=== PATIENT | male | born 1975 | race Hispanic/Latino ===

== ENCOUNTER 2018-06-14 21:11 | Inpatient (IN) | payer OTHER ==
[~2018-06-14 21:11] MED LIST: ISOVUE-370 76%-LOCM 1 ML ONE
[2018-06-14] MEDS ORDERED: Fentanyl 100 MCG/2 ML VIAL ONE (21:33)
--- NOTE | 2018-06-14 21:46 | RAD ---
FRONTAL RADIOGRAPH CHEST PORTABLE UPRIGHT: 06/14/2018 HISTORY: Shortness of breath. Trauma. COMPARISON: None. FINDINGS: On the right, there is a lack of lung markings above the clavicle. While no discrete pleural edge is noted, a small right apical pneumothorax cannot be fully excluded. Heart and mediastinal contours a ppear grossly unremarkable. No lobar consolidation. IMPRESSION: Probable small pneumothorax in the right lung apex, given lack of lung markings above the level of th e clavicle. POS: [facility]
--- NOTE | 2018-06-14 22:23 | CT ---
CT CHEST AND ABDOMEN AND PELVIS AND THORACIC SPINE AND LUMBAR SPINE: 06/14/2018 HISTORY: Hit in the chest with a metal pipe. Trauma. Pain. COMPARISON: None. TECHNIQUE: Axial CT imaging at 5 mm intervals from the thoracic inlet through the pubic symphysis with IV contra st. Coronal and sagittal reformatted imaging obtained. FINDINGS: CHEST: Mild subcutaneous gas is noted posterior to the pectoralis musculature on the right, extendin g into the right axillary region. No axillary, hilar, or mediastinal lymphadenopathy is noted. The vascular structures of the chest appear unremarkable. There is a small/moderate pneumothorax on the right, with an apical component, which measures up to 1 .1 cm in AP dimension, and a basilar component, which measures up to 1.8 cm in AP dimension. No pneu mothorax is appreciated on the left. There is a mildly displaced, obliquely oriented, anterior, right 4th rib fracture. No evidence for a left-sided rib fracture is seen. The lung parenchyma demonstrates no focal abnormality. ABDOMEN AND PELVIS: There is no free intraperitoneal air or fluid noted. The liver, spleen, pancreas, adrenal glands, and kidneys appear grossly unremarkable, aside from mult iple punctate, nonobstructing stones within both kidneys, right more numerous than left. There is fluid within a moderately distended stomach. There is a small fat-containing inguinal herni a on the left. Limited assessment of the bowel without contrast media demonstrates no evidence for i nflammatory change or obstruction. The vascular structures of the abdomen/pelvis demonstrate patency , and there is no lymphadenopathy in the abdomen or pelvis. Extraspinal osseous structures of the abdomen/pelvis demonstrate no acute fracture. THORACIC SPINE: Thoracic vertebral body height and alignment appear normal. No anterolisthesis or r etrolisthesis. No thoracic spine fracture or dislocation. LUMBAR SPINE: Lumbar vertebral body height and alignment appear within normal limits with no acute l umbar spine fracture or dislocation. IMPRESSION: Small-moderate pneumothorax on the right with an apical and a basilar component. There is small volu me associated subcutaneous emphysema within the right chest wall/right axillary region, and there is a mildly displaced, obliquely oriented, anterolateral, right-sided 4th rib fracture. Results called to Dr. Sandoval at 9:55 p.m. on 06/14/2018. CODE CR POS: [facility]
[2018-06-14] MEDS ORDERED: Lidocaine 1% (PF) 30 ML VIAL ONE (22:34)
[2018-06-14 23:03] LABS: #Basophils 0.1 thou/uL (0.0-0.2); #Eosinphils 0.1 thou/uL (0.0-0.7); #Lymphocytes 1.2 thou/uL (1.20-3.40); #Monocytes 0.7 thou/uL (0.11-0.59); #Neutrophils 11.4 thou/uL (1.40-6.50); %Basophils 0.5 % (0.0-1.0); %Eosinophils 0.4 % (0.0-10.0); %Lymphocytes 8.7 % (21.0-51.0); %Monocytes 5.4 % (0.0-10.0); %Neutrophils 85.1 % (42.0-75.0); Hemoglobin 15.9 g/dL (14.0-18.0); Mean Corpuscular HGB CONC 33.1 g/dL (32.0-36.0); Mean Corpuscular Hemoglobin 31.2 pg (27.0-31.0); Mean Platelet Volume 7.2 fL (7.4-10.4); Platelet Count 307 thou/uL (130-400); RBC Distribution Width 11.6 % (11.5-14.5); White Blood Cell (WBC) Count 13.4 thou/uL (4.8-10.8)
[2018-06-14 23:25] LABS: ALT (SGPT) 19 U/L (8-55); AST (SGOT) 20 U/L (5-34); Albumin 4.5 g/dL (3.5-5.0); Alkaline Phosphatase 73 U/L (40-150); Anion Gap 16 mmol/L (10-20); BUN (Urea Nitrogen) 13 mg/dL (8.9-20.6); Bilirubin, Total 0.5 mg/dL (0.2-1.2); Calc. Creatinine Clearance 0 mL/min (70-130); Calcium 9.6 mg/dL (7.8-10.44); Carbon Dioxide 22 mmol/L (22-29); Chloride 104 mmol/L (98-107); Estimated GFR-MDRD 51; Globulin 2.6 g/dL (2.4-3.5); Glucose 112 mg/dL (70-105); Potassium 3.9 mmol/L (3.5-5.1); Protein, Total 7.1 g/dL (6.0-8.3); Sodium 138 mmol/L (136-145)
[2018-06-14] MEDS ORDERED: Morphine 4 MG/ML VIAL ONE (23:31)
[2018-06-14 23:44] LABS: INR-International Normal Ratio 1.2; Prothrombin Time 14.9 SEC (12.0-14.7)
--- NOTE | 2018-06-15 01:21 | HP ---
TRAUMA SURGEON: Josh Larson MD CONSULTING PHYSICIAN: None. HISTORY OF PRESENT ILLNESS: The patient is a 43-year-old male, who presented to the emergency department via EMS after blunt right-sided chest trauma. 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 He did not fall or lose consciousness, but reported significant right-sided chest pain and lightheadedness afterwards. He arrived via EMS and was saturating 95% on room air. Denies nausea, vomiting, or diarrhea. Denies hemoptysis. REVIEW OF SYSTEMS: All additional review of systems negative except as indicated above. PAST MEDICAL HISTORY: Asthma. PAST SURGICAL HISTORY: None. SOCIAL HISTORY: The patient lives alone. He smokes a half a pack of cigarettes per day and drinks alcohol 3 times per week. Denies drug use. MEDICATIONS: Proventil, but he is not compliant. ALLERGIES: NO KNOWN DRUG ALLERGIES. PHYSICAL EXAMINATION: VITAL SIGNS: Pulse 78, respirations 19, oxygen saturation 98% on 2 L nasal cannula, blood pressure 111/81. PRIMARY SURVEY: Airway intact. Adequate breath sounds bilaterally. 2+ pulses in the bilateral radials, femorals, and DPs. GCS is 15. Gross motor and sensation intact. No lacerations, redness and some very light bruising to the right lateral chest wall. No external bleeding. SECONDARY SURVEY: HEAD: Normocephalic and atraumatic. No gross palpable skull deformities or tenderness. EYES: Pupils 3 to 2, equal, round, reactive to light bilaterally. ENT: No hemotympanum. No epistaxis. No septal hematoma. Midface stable to manipulation. No blood in the oropharynx. Dentition is intact. No anterior neck injury/crepitus/tenderness. C-SPINE: No step-offs or deformities. Nontender. C-collar not in place. CHEST: Right-sided lateral chest wall tenderness with no crepitus. No abrasions noted. Light ecchymosis and redness to the right lateral chest wall. Equal chest movement. ABDOMEN: Soft, nontender, nondistended. PELVIS: Stable to palpation, nontender. No abrasions or ecchymosis noted. RECTAL: Deferred. GENITOURINARY: Deferred. EXTREMITIES: No gross deformities. No abrasions or ecchymosis noted. 2+ pulses in the bilateral radials femorals and DPs. BACK/SPINE: No step-offs or deformities or tenderness to palpation of the thoracic or lumbar spine. No abrasions or ecchymosis noted. NEUROLOGIC: 5/5 strength in the bilateral envelope fold operator, plantar flexion, and dorsiflexion. Gross motor and sensation intact x4 extremities. LABORATORY FINDINGS: White count 13.4, hemoglobin 15.9, hematocrit 40.0, platelets 307. INR 1.2. Sodium 138, potassium 3.9, chloride 104, carbon dioxide 22, BUN 13, creatinine 1.52, glucose 112. DIAGNOSTIC FINDINGS: Chest x-ray demonstrates probable small pneumothorax in the right lung apex given lack of lung markings above the level of the clavicle. CT of the chest, abdomen and pelvis demonstrates small to moderate pneumothorax on the right with apical and basilar components. There is a small volume associated subcutaneous emphysema within the right chest wall/right axillary region and there is mildly displaced obliquely oriented anterolateral right-sided 4th rib fracture. ASSESSMENT: 1. Status post blunt chest trauma. 2. Right small apical and basilar pneumothorax. 3. Right 4th rib fracture. 4. Acute kidney injury. 5. History of asthma. PLAN: The patient will be admitted to the surgical floor with 2 L nasal cannula on at all time regardless of oxygen saturation. He will also receive a chest x- ray in the morning for further evaluation of the pneumothorax. Pain control via Ofirmev, tramadol, gabapentin, and Flexeril. We will hold NSAIDs at this time due to SUNITHA. SUNITHA likely due to dehydration, 500 mL bolus of normal saline was given in the ED and then the patient will be placed on normal saline at 120 an hour. We will also give him a DuoNeb in the emergency department and he will receive scheduled nebs thereafter. He will be on a regular diet. We will hold chemo-DVT prophylaxis at this time. We will repeat laboratory findings in the morning as well. The patient was discussed with Dr. Larson before this dictation. Job ID: [id number] [facility]
[2018-06-15] MEDS ORDERED: traMADol HCl 50 MG TAB PO PRN (01:42)
[2018-06-15] MEDS ORDERED: Ondansetron PF 4 MG/2 ML Vial IVP PRN (01:42)
[2018-06-15] MEDS ORDERED: Morphine 4 MG/ML VIAL SLOW IVP PRN ×2 (01:42→10:57)
[2018-06-15] MEDS ORDERED: Promethazine HCl 25 MG/ML VIAL IM PRN (01:42)
[2018-06-15] MEDS ORDERED: Dextrose 50% Abboject 50 ML SYRINGE SLOW IVP PRN (01:42)
[2018-06-15] MEDS ORDERED: Dextrose 5% in Water 1,000 ML IV PRN (01:42)
[2018-06-15] MEDS ORDERED: hydrALAZINE 20 MG/ML VIAL SLOW IVP PRN (01:42)
[2018-06-15] MEDS: Acetaminophen 1,000 MG in Premix Bag 1 BAG IVPB SCH ×2 (02:09→08:08)
[2018-06-15] MEDS: traMADol HCl 50 MG TAB PO SCH ×4 (02:11→20:14)
[2018-06-15] MEDS: Sodium Chloride 0.9% 1,000 ML IV SCH ×2 (02:12→13:45)
[2018-06-15 02:45] VITALS: BMI 25.7
[2018-06-15 07:03] LABS: #Eosinphils 0.1 thou/uL (0.0-0.7); #Lymphocytes 2.2 thou/uL (1.20-3.40); #Monocytes 0.8 thou/uL (0.11-0.59); #Neutrophils 4.5 thou/uL (1.40-6.50); %Basophils 0.6 % (0.0-1.0); %Eosinophils 1.4 % (0.0-10.0); %Lymphocytes 28.4 % (21.0-51.0); %Monocytes 10.7 % (0.0-10.0); %Neutrophils 58.8 % (42.0-75.0); Mean Corpuscular HGB CONC 33.6 g/dL (32.0-36.0); Mean Corpuscular Hemoglobin 31.9 pg (27.0-31.0); Mean Corpuscular Volume 94.9 fL (78.0-98.0); Mean Platelet Volume 7.7 fL (7.4-10.4); Platelet Count 285 thou/uL (130-400); RBC Distribution Width 11.9 % (11.5-14.5); White Blood Cell (WBC) Count 7.6 thou/uL (4.8-10.8)
[2018-06-15 07:11] LABS: Anion Gap 13 mmol/L (10-20); BUN (Urea Nitrogen) 17 mg/dL (8.9-20.6); Calc. Creatinine Clearance 86 mL/min (70-130); Calcium 9.2 mg/dL (7.8-10.44); Carbon Dioxide 27 mmol/L (22-29); Chloride 105 mmol/L (98-107); Estimated GFR-MDRD 73; Glucose 105 mg/dL (70-105); Magnesium 2.6 mg/dL (1.6-2.6); Potassium 4.2 mmol/L (3.5-5.1); Sodium 141 mmol/L (136-145)
[2018-06-15] MEDS ORDERED: Lidocaine 1% w/Epinephrine 1:100K 20 ML VIAL IJ SCH (08:00)
[2018-06-15] MEDS: Gabapentin 100 MG CAP PO SCH ×3 (08:10→20:13)
[2018-06-15] MEDS: Polyethylene Glycol 3350 17 GM Packet PO SCH (08:10)
[2018-06-15] MEDS: Famotidine 20 MG TAB PO SCH ×2 (08:10→20:13)
[2018-06-15] MEDS: Senokot S 8.6-50 MG TAB PO SCH ×2 (08:10→20:19)
[2018-06-15] MEDS ORDERED: Lidocaine 1% (PF) 30 ML VIAL ONE (08:57)
--- NOTE | 2018-06-15 09:10 | RAD ---
SINGLE VIEW OF THE CHEST: COMPARISON: 06/14/2018. HISTORY: Right pneumothorax. FINDINGS: A single view of the chest shows a normal-sized cardiomediastinal silhouette. There is a small right apical pneumothorax Compared to the prior radiograph, this has increased in size. IMPRESSION: Increasing size of small right pneumothorax. POS: [facility]
[2018-06-15] MEDS ORDERED: Ketorolac Tromethamine 30 MG/ML VIAL IVP SCH (09:15)
--- NOTE | 2018-06-15 11:22 | PRG ---
DATE OF SERVICE: 06/15/2018 SUBJECTIVE: The patient was seen this morning sitting up at the edge of bed. Reported pain to right chest wall, not currently relieved on current pain regimen. Denied shortness of breath, nausea, vomiting, or diarrhea. Chest x-ray this morning demonstrated increasing in size right-sided pneumothorax. The patient did consent to a chest tube placement on that right side and the procedure was completed at bedside this morning by myself and Dr. Li. He tolerated the procedure well and had no complaints afterwards. OBJECTIVE: VITAL SIGNS: Temperature 97.8, pulse 72, respirations 20, oxygen saturation 95% on 2 L nasal cannula, blood pressure 120/74. GENERAL: Well-appearing middle-aged male sitting at edge of bed with minimal signs of distress. PULMONARY: Equal chest rise and fall. Clear breath sounds bilaterally. No signs of acute pulmonary distress. CARDIAC: Regular rate and rhythm. No murmurs, gallops, or rubs. GI: Abdomen is soft, nontender, nondistended. EXTREMITIES: 2+ pulses in all extremities. Gross motor and sensation intact in all extremities. No significant swelling noted. LABORATORY FINDINGS: White count 7.6, hemoglobin 15.0, hematocrit 44.6, platelets 285. Sodium 141, potassium 4.2, chloride 105, carbon dioxide 27, BUN 17, creatinine 1.11, glucose 105, phos 5.0, magnesium 2.6. DIAGNOSTIC FINDINGS: Chest x-ray completed this morning on June 15 demonstrated increased size of small right pneumothorax. ASSESSMENT: 1. Status post blunt chest trauma. 2. Right right-sided pneumothorax, status post chest tube placement. 3. Right 4th rib fracture. 4. Acute kidney injury, resolved. 5. History of asthma. PLAN: The patient received a right-sided chest tube today by Dr. Li and myself which is to suction at this time. He will receive a chest x-ray tomorrow morning. We will also monitor output from the chest tube. We will continue previous pain regimen, but will increase gabapentin. Now that SUNITHA has resolved. We will start Toradol IV 15 mg q.6 hours scheduled x3 days. Discontinue normal saline. The patient can continue a regular diet. Continue scheduled DuoNeb. We will start Lovenox for chemo-DVT prophylaxis this evening. The patient was seen and examined by Dr. Li and myself this morning during rounds. Job ID: [id number]
[2018-06-15 12:41] LABS: Bilirubin Negative (Negative); Blood, Urine Negative (Negative); Clarity CLEAR (Clear); Glucose, Urine (Dipstick) Negative (Negative); Leukocyte Negative (Negative); Nitrite Negative (Negative); Protein, Urine (Dipstick) Negative (Neg-Trace); Urobilinogen 0.2 mg/dL (0.2-1.0)
[2018-06-15 12:43] LABS: Amphetamine Detected (NotDetected); Barbiturates Screen Not Detected (NotDetected); Benzodiazepine Screen Not Detected (NotDetected); Cocaine Metabolite Screen Detected (NotDetected); Medtox Control Line Valid? VALID (VALID); Medtox Reader # READER 4; Methadone Not Detected (NotDetected); Methamphetamine Detected (NotDetected); Opiate Screen Detected (NotDetected); Oxycodone Screen Not Detected (NotDetected); Phencyclidine (PCP) Not Detected (NotDetected); THC/Cannabinoid Screen Not Detected (NotDetected); Tricyclic Screen Not Detected (NotDetected)
[2018-06-15 12:46] LABS: Specific Gravity, Urine Greater than 1.060 (1.002-1.036)
--- NOTE | 2018-06-15 13:37 | OP ---
DATE OF PROCEDURE: 06/15/2018 COMPLICATIONS: None. SPECIMENS: None. DRAINS: Right-sided 24-Kosovan chest tube. AGRICULTURE SCIENCE TEACHER: Jayy Li DO. ANESTHESIA: Local anesthesia, 1% lidocaine without epinephrine. ESTIMATED BLOOD LOSS: Less than 5 mL. PREOPERATIVE DIAGNOSES: Blunt chest trauma, right-sided moderate pneumothorax, and right 4th rib fracture. POSTOPERATIVE DIAGNOSES: Blunt chest trauma, right-sided moderate pneumothorax, and right 4th rib fracture. PROCEDURE PERFORMED: Right-sided thoracostomy tube placement. BRIEF PATIENT HISTORY AND PROCEDURE IN DETAIL: This is a 43-year-old male patient who presented to the ED yesterday initially with a small right-sided apical and basilar pneumothorax. He was maintaining his saturation on room air, and he was admitted to the floor with nasal cannula oxygen and chest x-ray completed this morning. The patient's pneumothorax on the right side had increased in size and now was moderate. He was still maintaining his own airway and oxygen saturation, but it was decided that he needed a right-sided chest tube for evacuation of the pneumothorax. The patient was identified for a right-sided 24-Kosovan chest tube which accessory was reviewed at the patient's bedside and was determined necessary. The patient signed consent after discussing risks and benefits of the procedure. A time-out was called and a right lateral chest wall at the anterior axillary line was marked in the patient, prepped for the procedure. A local block was obtained using 20 mL of lidocaine without epinephrine. Adequate anesthesia was achieved. The patient was then prepped with iodine and drapes in his right arm above his head. The skin incision with a 10 blade and dissected downward to the subcutaneous tissue. Blunt dissection of the tissue using hemostats was achieved. The superior costal margin was identified and after moving up one rib space, the intercostal muscle was bluntly dissected using gentle controlled pressure and gush of air was heard and my finger swept through the pleural space and did not feel any organ structures. The chest tube was placed apically to the 16 cm ed. It was sutured with 0 silk and secured. Gauze was placed around the tube and it was taped in place. Chest tube was connected to a Pleur-Evac canister and connected to continuous suction at -20. The patient's respiration was nonlabored. He was speaking in full sentences without accessory muscle use. He had good pain control. No air leak was identified. There was no output from the chest tube. Tiling was witnessed in the suction chamber. Bleeding was controlled and the patient tolerated the procedure adequately. Dr. Li was at the bedside during the entire procedure and assisted with the local anesthetic administration. Job ID: [id number]
[2018-06-15] MEDS: Ketorolac Tromethamine 30 MG/ML VIAL IVP SCH ×2 (13:43→20:14)
[2018-06-15] MEDS: Acetaminophen 500 MG TAB PO SCH ×2 (13:43→20:13)
[2018-06-15] MEDS: Enoxaparin Sodium 40 MG/0.4 ML SYRINGE SC SCH (20:15)
[2018-06-15] MEDS: Cyclobenzaprine 10 MG TAB PO PRN (22:06)
[2018-06-16] MEDS: Acetaminophen 500 MG TAB PO SCH ×4 (02:10→20:29)
[2018-06-16] MEDS: Ketorolac Tromethamine 30 MG/ML VIAL IVP SCH ×2 (02:10→08:40)
[2018-06-16] MEDS: traMADol HCl 50 MG TAB PO SCH ×4 (02:11→20:30)
[2018-06-16 06:12] LABS: #Basophils 0.1 thou/uL (0.0-0.2); #Eosinphils 0.2 thou/uL (0.0-0.7); #Lymphocytes 2.1 thou/uL (1.20-3.40); #Monocytes 0.4 thou/uL (0.11-0.59); #Neutrophils 1.9 thou/uL (1.40-6.50); %Basophils 1.3 % (0.0-1.0); %Eosinophils 3.8 % (0.0-10.0); %Lymphocytes 45.2 % (21.0-51.0); %Neutrophils 40.8 % (42.0-75.0); Hemoglobin 14.3 g/dL (14.0-18.0); Mean Corpuscular Hemoglobin 31.6 pg (27.0-31.0); Mean Platelet Volume 7.8 fL (7.4-10.4); Platelet Count 218 thou/uL (130-400); RBC Distribution Width 11.9 % (11.5-14.5); Red Blood Cell (RBC) Count 4.53 mill/uL (4.70-6.10); White Blood Cell (WBC) Count 4.6 thou/uL (4.8-10.8)
[2018-06-16 06:37] LABS: Anion Gap 7 mmol/L (10-20); BUN (Urea Nitrogen) 15 mg/dL (8.9-20.6); Calc. Creatinine Clearance 106 mL/min (70-130); Calcium 8.5 mg/dL (7.8-10.44); Carbon Dioxide 29 mmol/L (22-29); Chloride 107 mmol/L (98-107); Estimated GFR-MDRD Greater than 90; Glucose 101 mg/dL (70-105); Phosphorus 3.4 mg/dL (2.3-4.7); Potassium 3.9 mmol/L (3.5-5.1); Sodium 139 mmol/L (136-145)
--- NOTE | 2018-06-16 08:38 | RAD ---
PORTABLE CHEST: HISTORY: Right chest tube. Pneumothorax. COMPARISON: 06/15/2018 FINDINGS: A right-sided chest tube has been placed. The right pneumothorax noted previously has re-expanded. No significant pneumothorax identified. The lungs appear clear. No infiltrate. The heart and media stinum are unremarkable. IMPRESSION: Right-sided chest tube. No significant pneumothorax apparent. POS: [facility]
[2018-06-16] MEDS: Polyethylene Glycol 3350 17 GM Packet PO SCH (08:39)
[2018-06-16] MEDS: Senokot S 8.6-50 MG TAB PO SCH ×2 (08:39→20:30)
[2018-06-16] MEDS: Gabapentin 100 MG CAP PO SCH ×3 (08:40→20:31)
[2018-06-16] MEDS: Famotidine 20 MG TAB PO SCH ×2 (08:40→20:31)
--- NOTE | 2018-06-16 12:29 | PRG ---
DATE OF SERVICE: 06/16/2018 SUBJECTIVE: The patient is currently on the surgical floor. He is status post being struck in the right chest by a pipe at work. He sustained a right pneumothorax, yesterday, underwent chest tube placement. He tolerated this procedure well. He is having some pain control issues this morning, otherwise he is doing well. His chest tube currently is to suction and he is tolerating a diet. OBJECTIVE: VITAL SIGNS: Temperature is 98.1, heart rate 62, blood pressure 127/77, respirations are 16, and oxygen saturation 92% on room air. GENERAL: The patient is resting comfortably in bed. He is awake, alert, and oriented x3. Herlinda Coma Scale is 15. HEENT: Unremarkable. LUNGS: Clear to auscultation with moderate inspiratory and expiratory effort. The patient states that his chest tube site hurts, otherwise doing well. HEART: Regular rate and rhythm. ABDOMEN: Soft, flat, and nontender with active bowel sounds. EXTREMITIES: Neurovascularly intact x4. Right chest tube is in place, functioning, and shows no sign of an air leak. LABORATORY FINDINGS: White blood cell count 4.6, hemoglobin 14.3, hematocrit 43.5, and platelets are 218. Sodium 139, potassium 3.9, chloride 107, CO2 of 29, BUN 15, creatinine 0.90, glucose 101, magnesium 2.0, phosphorus 3.4. AP chest radiograph shows right-sided chest tube with no significant pneumothorax. ASSESSMENT: 1. Status post blunt chest trauma. 2. Right-sided pneumothorax, status post chest tube placement. 3. Right fourth rib fracture. PLAN: Plan will be to place the chest tube to water seal. Repeat his chest x-ray in the morning. We will make adjustments to his pain medications and encourage him to be out of bed and ambulate. We will also start chemical VTE prophylaxis today. The evaluation and examination were done with Dr. Li during rounds this morning. Job ID: [id number]
[2018-06-16] MEDS: Ibuprofen 800 MG TAB PO SCH ×2 (13:35→20:31)
[2018-06-16] MEDS: Enoxaparin Sodium 40 MG/0.4 ML SYRINGE SC SCH (20:31)
[2018-06-17] MEDS: Acetaminophen 500 MG TAB PO SCH ×4 (02:00→20:51)
[2018-06-17] MEDS: traMADol HCl 50 MG TAB PO SCH ×4 (02:00→20:53)
[2018-06-17] MEDS: Ibuprofen 800 MG TAB PO SCH ×3 (05:45→21:00)
[2018-06-17] MEDS: Polyethylene Glycol 3350 17 GM Packet PO SCH (08:31)
[2018-06-17] MEDS: Senokot S 8.6-50 MG TAB PO SCH ×2 (08:31→20:51)
[2018-06-17] MEDS: Gabapentin 100 MG CAP PO SCH ×3 (08:33→20:51)
[2018-06-17] MEDS: Famotidine 20 MG TAB PO SCH ×2 (08:33→20:51)
--- NOTE | 2018-06-17 09:14 | RAD ---
CHEST ONE VIEW: INDICATIONS: Chest pain. COMPARISON: 06/16/2018 IMPRESSION: Right-sided thoracostomy tube is unchanged in position. No definite pneumothorax is evident. Heart size is normal. Osseous structures are unchanged. POS: [facility]
--- NOTE | 2018-06-17 15:19 | RAD ---
FChest AP view INDICATION: Follow-up right pneumothorax COMPARISON: Chest radiograph dated June 17, 2018 at 7:01 AM FINDINGS:There is been interval development of a small right apical pneumothorax. Right-sided thoraco stomy tube has been removed. The lungs are clear. No acute osseous abnormality is evident. IMPRESSION: Interval removal of right-sided thoracostomy tube. Interval development of recurrent smal l right apical pneumothorax. Findings were called to Dr. Li at 3:15 PM on June 17, 2018.
[2018-06-17] MEDS: Enoxaparin Sodium 40 MG/0.4 ML SYRINGE SC SCH (20:52)
[2018-06-17] MEDS: Cyclobenzaprine 10 MG TAB PO PRN (21:00)
[2018-06-18] MEDS: traMADol HCl 50 MG TAB PO SCH (03:00)
[2018-06-18] MEDS: Acetaminophen 500 MG TAB PO SCH (03:00)
[2018-06-18] MEDS: Ibuprofen 800 MG TAB PO SCH (05:13)
[2018-06-18] MEDS: Cyclobenzaprine 10 MG TAB PO PRN (05:13)
--- NOTE | 2018-06-18 07:39 | RAD ---
FRadiograph chest one view: HISTORY: 43 year old male follow-up pneumothorax. FINDINGS: The visualized lung fam are clear. The cardiomediastinal silhouette is normal. The previously demo nstrated tiny right apical pneumothorax is no longer visible. IMPRESSION: No acute cardiopulmonary findings.
[2018-06-18 07:53] VITALS: BP 131/76; TEMP 98
[2018-06-18] MEDS: Senokot S 8.6-50 MG TAB PO SCH (08:17)
[2018-06-18] MEDS: Polyethylene Glycol 3350 17 GM Packet PO SCH (08:17)
--- NOTE | 2018-06-18 13:47 | DIS ---
DATE OF ADMISSION: 06/15/2018 DATE OF DISCHARGE: 06/18/2018 ADMISSION DIAGNOSES: 1. Status post blunt chest trauma. 2. Right small apical and basilar pneumothorax. 3. Right 4th rib fracture. 4. Acute kidney injury. CONSULTATIONS: None. PROCEDURES: Right chest tube thoracostomy placement. 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 He was brought to the emergency department, evaluated and examined, noted to have the above injuries. Initially, the patient did not require chest tube following day. Repeat chest x-ray showed expansion of his pneumothorax necessitating a chest tube to be placed. The patient will be followed with serial exams and x-rays and would eventually have his chest tube removed. He did have a small residual pneumothorax initially on the day of the removal. The following day, the day of his discharge, he had complete resolution on the radiograph of his pneumothorax. The patient at the time of discharge was ambulatory. His pain was controlled. He is tolerating a diet, and was able to be discharged home. He will follow up with Dr. Li in [facility] in 2 weeks with a chest x-ray sooner as needed. The patient was given strict return precautions at the time of discharge. Job ID: [id number]
== END 2018-06-18 11:15 | disposition home or self-care (01) | DRG 200 ==
LOC: ERS 21:11 → SURG B 06-15 00:03
PROVIDERS: ADMIT Surgery; ATTEND Surgery
PROC: 0W9900Z Drainage of Right Pleural Cavity with Drainage Device, Open Approach (ICD-10-PCS; principal; 2018-06-15)
DX: S27.0XXA Traumatic pneumothorax, initial encounter (principal); S22.31XA Fracture of one rib, right side, initial encounter for closed fracture; N17.9 Acute kidney failure, unspecified; F17.210 Nicotine dependence, cigarettes, uncomplicated; J45.909 Unspecified asthma, uncomplicated; W22.8XXA Striking against or struck by other objects, initial encounter; Y92.69 Other specified industrial and construction area as the place of occurrence of the external cause; Y99.0 Civilian activity done for income or pay
CPT/HCPCS: 36415; 71045; 71260; 74177; 80048; 80053; 80306; 81003; 83735; 84100; 85025; 85610; 85730; 94640; 94760; 96374; 96375; G0390; J0131; J1650; J1885; J2001; J2270; J3010; J7620; Q9966

== ENCOUNTER 2018-07-02 09:53 | Outpatient (CLI) | payer OTHER ==
--- NOTE | 2018-07-02 10:34 | RAD ---
EXAM: Chest 2 views: HISTORY: Previous right-sided pneumothorax. COMPARISON: 06/15/2018 FINDINGS: There is a normal-sized cardiomediastinal silhouette. There is no evidence of consolidation, mass, or pleural effusion. No pneumothorax is visualized. The bones are unremarkable. IMPRESSION: No evidence of acute cardiopulmonary disease
== END 2018-07-02 09:54 | disposition home or self-care (01) ==
LOC: RAD 09:53
PROVIDERS: ATTEND Physician Assistant
DX: S22.31XD Fracture of one rib, right side, subsequent encounter for fracture with routine healing (principal); J93.9 Pneumothorax, unspecified
CPT/HCPCS: 71046

== ENCOUNTER 2018-07-23 10:04 | Outpatient (CLI) | payer OTHER ==
--- NOTE | 2018-07-23 11:22 | RAD ---
2 VIEWS CHEST: Date: 07/23/18. PROVIDED CLINICAL HISTORY: Right rib fracture and right-sided pneumothorax. FINDINGS: Comparison made with study dated 07/02/18. Cardiac and mediastinal silhouette is within normal limits. No focal consolidation, pleural fluid, or pneumothorax apparent. IMPRESSION: No evidence for an acute cardiopulmonary process. POS: [facility]
== END 2018-07-23 10:05 | disposition home or self-care (01) ==
LOC: RAD 10:04
PROVIDERS: ATTEND Physician Assistant
DX: S22.31XD Fracture of one rib, right side, subsequent encounter for fracture with routine healing (principal); J93.9 Pneumothorax, unspecified
CPT/HCPCS: 71046